=== PATIENT | female | born 1995 | race Two or more races ===

== ENCOUNTER 2025-07-04 06:18 | Emergency (ER) | payer BC, MEDICAID, OTHER ==
[~2025-07-04] VITALS: Ht 170.2 cm; Wt 85.7 kg
[2025-07-04 06:20] VITALS: TEMP 98.4
--- NOTE | 2025-07-04 06:36 | ED.PDOC ---
History of Present Illness HPI Comments 29-year-old female presents to the ER with no prior medical history associated with a chief complaint of LE. Patient reports on having right knee pain since March of a 05/06 pain. Patient denies injury or trauma to the area as well as swelling or deformity at the moment. Notes that she had an MRI of 07/01/2025 Chief Complaint: Lower Extremity Time Seen by MD: 06:30 Primary Care Provider: UNKNOWN Reviewed Notes: Nurses Notes, Medications, Allergies Allergies: Coded Allergies: NO KNOWN ALLERGIES (Unverified , 06/05/14) Information Source: Patient Mode of Arrival: Ambulatory Severity: Moderate Timing: Months Duration: Since onset Prehospital treatment: None Past Medical History PAST MEDICAL HISTORY: Denies Surgical History: Denies all surgeries VALVE INSPECTOR History: No Pertinent VALVE INSPECTOR History Family History Family History: Reviewed,noncontributory to illness, Unknown Social History Smoker: Non-Smoker Alcohol: Denies ETOH Use Drugs: Denies Drug Use Lives In: Home Constitutional: denies: chills, diaphoresis, fatigue, fever, malaise, sweats, weakness, others EENTM: denies: blurred vision, double vision, ear bleeding, ear discharge, ear drainage, ear pain, ear ringing, eye pain, eye redness, hearing loss, mouth pain, mouth swelling, nasal discharge, nose bleeding, nose congestion, nose pain, photophobia, tearing, throat pain, throat swelling, voice changes, others Respiratory: denies: cough, hemoptysis, orthopnea, SOB at rest, shortness of breath, SOB with excertion, stridor, wheezing, others Cardiovascular: denies: chest pain, dizzy spells, diaphoresis, Dyspnea on exertion, edema, irregular heart beat, left arm pain, lightheadedness, palpitations, PND, syncope, others Gastrointestinal: denies: abdomen distended, abdominal pain, blood streaked bowels, constipated, diarrhea, dysphagia, difficulty swallowing, hematemesis, melena, nausea, poor appetite, poor fluid intake, rectal bleeding, rectal pain, vomiting, others Genitourinary: denies: abnormal vagina bleeding, burning, dyspareunia, dysuria, flank pain, frequency, hematuria, incontinence, pain, , vagina discharge, urgency, others Neurological: denies: dizziness, fainting, headache, left sided numbness, left sided weakness, numbness, paresthesia, pre-existing deficit, right sided numbness, right sided weakness, seizure, speech problems, tingling, tremors, weakness, others Musculoskeletal: reports: others (Lower extremity pain); denies: back pain, gout, joint pain, joint swelling, muscle pain, muscle stiffness, neck pain Integumetry: denies: bruises, change in color, change in hair/nails, dryness, laceration, lesions, lumps, rash, wounds, others Allergic/Immunocompromised: denies: Difficulty Healing, Frequent Infections, Hives, Itching, others Hematologic/Lymphatic: denies: anemia, blood clots, easy bleeding, easy bruising, swollen glands, others Endocrine: denies: excessive hunger, excessive sweating, excessive thirst, excessive urination, flushing, intolerance to cold, intolerance to heat, unexplained weight gain, unexplained weight loss, others Psychiatric: denies: anxiety, bipolar disorder, depression, hopeless, panic disorder, schizophrenia, sleepless, suicidal, others All Other Systems: Reviewed and Negative Physical Exam General Appearance: Moderate Distress, Normal HEENT: Normal ENT Inspection, Pharynx Normal, TMs Normal Neck: Full Range of Motion, Non-Tender, Normal, Normal Inspection Respiratory: Chest Non-Tender, Lungs Clear, No Accessory Muscle Use, No Respiratory Distress, Normal Breath Sounds Cardiovascular: No Edema, No JVD, No Murmur, No Gallop, Normal Peripheral Pulses, Regular Rate/Rhythm Breast Exam: Deferred Gastrointestinal: No Organomegaly, Non Tender, No Pulsatile Mass, Normal Bowel Sounds, Soft Genitalia: Deferred Pelvic: Deferred Rectal: Deferred Extremities: No calf tenderness, Normal capillary refill, Normal inspection, Normal range of motion, Non-tender, No pedal edema Musculoskeletal : Apperance: Normal Neurologic: Alert, stamp press operator II-XII nml as Tested, No Motor Deficits, Normal Affect, Normal Mood, No Sensory Deficits Cerebellar Function: Normal Reflexes: Normal Skin: Dry, Normal Color, Warm Peripheral Pulses: 3+ Radial (R), 3+ Radial (L) Lymphatic: No Adenopathy Was a procedure done? Was a procedure done?: No Differential Dx Considerations may include: Muscle strain Musculoskeletal pain X-Ray, Labs, Meds, VS Vital Signs Date Time Temp Pulse Resp B/P (MAP) Pulse Ox O2 Delivery O2 Flow Rate FiO2 9/7/25 07:58 57 18 112/56 (74) 98 07/04/25 07:58 56 18 98 Room Air 07/04/25 06:20 98.4 81 13 164/89 97 98.4 Current Medications Medications (Trade) Dose Ordered Sig/Ton Route Start Time Stop Time Status Last Admin Acetaminophen/ Hydrocodone Bitart ([place] 10/325MG Tab) 1 tab ONCE ONCE PO 07/04/25 07:15 07/04/25 07:16 DC 07/04/25 07:15 Patient alert. Vitals stable. No sign of any distress. Answering questions. No abnormalities noticed on physical examination. She is unable to put weight on her right lower extremity. Possible ligamentous injury. Waiting for her MRI report. She recently had the scanning done. DVT study reviewed does not show any acute process. No shortness a breath. No chest pain. Was given [place]. X-ray of the knee does show osteochondroma. Explained to the patient. Was told to follow up with her primary care physician. Was told to come back if there is any problem. Time of 1ST Reevaluation: 07:00 Reevaluation 1ST: Unchanged Patient Education/Counseling: Diagnosis, Treatment, Prognosis Family Education/Counseling: No Family Present SEPSIS Sepsis Screen Date sepsis recognized/suspect: Jul 04, 2025 Time Sepsis recognized/suspect: 619 Recent Procedure: No On Antibiotic Therapy: No Respiratory Rate >20: No Heart Rate >90: No Temp<36 C (96.8 F) or >38.3 C: No SBP <90 or MAP <65 mmHG: No New Acute Mental Status Change: No Is the patient on CPAP, BIPAP,: No Physician Orders R Knee 2v Xray (07/04/25 07:02) Rt Lower Dvt (07/04/25 07:07) Sanchez Wrap: (07/04/25 08:39) Vital Signs Date Time Temp Pulse Resp B/P (MAP) Pulse Ox O2 Delivery O2 Flow Rate FiO2 07/04/25 07:58 57 18 112/56 (74) 98 07/04/25 07:58 56 18 98 Room Air 07/04/25 06:20 98.4 81 13 164/89 97 98.4 Medications Medications Dose Ordered Sig/Ton Route Start Time Stop Time Status Last Admin Dose Admin Acetaminophen/ Hydrocodone Bitart 1 tab ONCE ONCE PO 07/04/25 07:15 07/04/25 07:16 DC 07/04/25 07:15 Departure 1 Departure Time of Disposition: 07:33 Impression: Primary Impression: Osteochondroma Additional Impression: Muscle strain of knee Qualified Codes: S86.911S - Strain of unspecified muscle(s) and tendon(s) at lower leg level, right leg, sequela Disposition: HOME / SELF CARE / HOMELESS Condition: Good Discharged With: Self Critical Care Note Critical Care Time?: No Stability Stability form required: No Heart Score Heart Score: Heart Score Response (Comments) Value History N/A 0 EKG N/A 0 Age N/A 0 Risk Factors N/A 0 Troponin N/A 0 Total 0 I personally scribed for JODI ALMAGUER MD ([email or web address]) on 07/04/25 at 06:36. Electronically submitted by Jamal Wilson ([email or web address]). JODI ALMAGUER MD Jul 04, 2025 06:36
[2025-07-04] MEDS: HYDROcodone-ACET 10/325MG TAB PO ONE (07:15)
--- NOTE | 2025-07-04 07:46 | DVH ---
US RT Lower DVT HISTORY: dvt COMPARISON: None TECHNIQUE: Duplex doppler evaluation of the deep venous system of the lower extremity from the common femoral veins, superficial femoral vein, great saphenous vein, deep femoral vein, popliteal vein, an d calf veins, including color doppler and spectral/pulsed waveform analysis, was performed. FINDINGS: Right: - Common femoral vein: Compressible - Deep femoral vein: Compressible - Femoral vein: Compressible - Popliteal vein: Compressible - Posterior tibial vein: Waveforms present - Other: Nothing IMPRESSION: No right lower extremity deep venous thrombosis.
[2025-07-04 07:58] VITALS: BP 112/56; PULSE 56; RESP 18; O2SAT 98
--- NOTE | 2025-07-04 08:09 | DVH ---
XY R KNEE 2V XRAY, INDICATION: sprain TECHNICAL DATA: Frontal , and lateral views were obtained of the right knee. COMPARISON: None FINDINGS: No fracture is identified. Medial, lateral and patellofemoral compartment joint spaces are maintained . Multiple osteochondromas are seen in the distal femur and proximal tibia/fibula. Alignment is anato daljit. Soft tissues are within normal limits. No joint effusion is demonstrated. IMPRESSION: No acute fracture or dislocation of the right knee. Multiple osteochondromas are seen in the distal femur and proximal tibia/fibula.
== END 2025-07-04 09:01 | disposition home or self-care (01) ==
LOC: ER 06:18
DX: S86.919A Strain of unspecified muscle(s) and tendon(s) at lower leg level, unspecified leg, initial encounter (principal); D16.9 Benign neoplasm of bone and articular cartilage, unspecified; X58.XXXA Exposure to other specified factors, initial encounter; Y93.89 Activity, other specified; Y92.89 Other specified places as the place of occurrence of the external cause; Y99.8 Other external cause status
CPT/HCPCS: 73560; 93971